=== PATIENT | male | born 1990 | race African-American/Black ===

== ENCOUNTER 2016-11-10 13:11 | Emergency (ER) | payer OTHER ==
[~2016-11-10] VITALS: Ht 185.4 cm; Wt 177.9 kg
[~2016-11-10 13:11] MED LIST: Aspirin E.C. PO; CIPRO500 MG PO; FLOMAX0.4 MG PO; KENALOG,ARISTOC80 GM TP; PERCOCET 5/31 TABLET PO
[2016-11-10] MEDS ORDERED: NAPROSYN500 MG PO (15:06)
[2016-11-10] MEDS ORDERED: FLEXERIL10 MG PO (15:06)
[2016-11-10 15:14] VITALS: BP 146/97
== END 2016-11-10 15:16 | disposition home or self-care (01) ==
LOC: EME 13:11
DX: M62.838 Other muscle spasm (principal); M54.5 Low back pain; V43.52XA Car driver injured in collision with other type car in traffic accident, initial encounter
CPT/HCPCS: 72100; 99281; 99284